=== PATIENT | male | born 1975 | race Caucasian/White ===

== ENCOUNTER 2022-10-19 17:10 | Emergency (ER) | payer OTHER, SELFPAY ==
[2022-10-19 17:34] VITALS: BP 132/88; PULSE 82; RESP 16; TEMP 37.1; O2SAT 100
[2022-10-19 17:36] VITALS: BP 132/88; PULSE 82; RESP 16; TEMP 37.1; O2SAT 100
--- NOTE | 2022-10-19 18:03 | PC.NURSE ---
1800- Saw pt on camera get in his truck and drive off. Pt did not press call light nor stop and tell anyone he was leaving.
== END 2022-10-19 18:00 | disposition left against medical advice (07) ==
PROVIDERS: Emergency Provider Internal Medicine Hematology & Oncology
DX: Z53.21 Procedure and treatment not carried out due to patient leaving prior to being seen by health care provider (principal)
CPT/HCPCS: 99199